=== PATIENT | male | born 1955 | race Asian ===

== ENCOUNTER 2024-07-06 19:52 | Emergency (ER) | payer OTHER, SELFPAY ==
[2024-07-06 19:55] VITALS: BP 132/70
[2024-07-06 20:18] VITALS: BMI 28.1
[2024-07-06 20:23] VITALS: BP 115/66
[2024-07-06 20:48] LABS: % Basophils 0.9 % (0-2); % Eosinophils 1.2 % (0-6); % Immature Granulocytes 0.2 % (0-0.5); % Lymphocytes 39.4 % (20.5-51.1); % Monocytes 11.5 % (1.7-9.3); % Neutrophils 46.8 % (42.2-75.2); Absolute Basophils 0.1 10^3/uL (0-0.2); Absolute Eosinophils 0.1 10^3/uL (0-0.7); Absolute Lymphocytes 2.6 10^3/uL (1.2-3.4); Absolute Monocytes 0.8 10^3/uL (0.1-0.6); Absolute Neutrophils 3.1 10^3/uL (1.4-6.5); Hematocrit 36.7 % (39.0-52.0); Mean Corp Hgb Conc. 32.7 g/dL (33.0-37.0); Mean Corpuscular Hgb 29.1 pg (27.0-31.0); Mean Corpuscular Volume 89.1 fL (80.0-94.0); Mean Platelet Volume 9.6 fL (7.4-10.4); Nucleated Red Blood Cells % 0 % (-); Platelet Count 204 10^3/uL (130-400); Red Blood Cell Count 4.12 10^6/uL (4.70-6.10); Red Cell Dist. Width 13.3 % (11.5-14.5); White Blood Cell Count 6.5 10^3/uL (4.8-10.8)
[2024-07-06 21:00] VITALS: BP 108/61
[2024-07-06 21:06] LABS: ALT (SGPT) 17 U/L (0-50); AST (SGOT) 28 U/L (17-59); Albumin 4.2 g/dl (3.5-5.0); Alkaline Phosphatase 86 U/L (38-126); Blood Urea Nitrogen 26 mg/dl (9-20); Calcium 9.6 mg/dl (8.4-10.2); Carbon Dioxide 29 mmol/L (22-30); Chloride 104 mmol/L (98-107); Estimated Creatinine Clearance 89 ml/min; Glucose 100 mg/dl (70-99); Potassium 4.1 mmol/L (3.5-5.1); Sodium 142 mmol/L (135-145); Total Bilirubin 0.6 mg/dl (0.2-1.3); Total Protein 7.5 g/dl (6.3-8.2); eGFR > 60.00
[2024-07-06 21:11] LABS: Troponin I 0.019 ng/ml
[2024-07-06 22:00] VITALS: BP 111/65
[2024-07-06 23:00] VITALS: BP 116/70
[2024-07-06 23:51] LABS: Troponin I < 0.012 ng/ml
--- NOTE | 2024-07-07 00:05 | ED.GENMED ---
History of Present Illness
General
Chief Complaint: Heart Rate Problem
Source: patient and family (Son who is at bedside)
Exam Limitations: other (Patient speaks Persian, son is interpreting)
Time Seen by Provider: 07/06/24 22:17
Nursing documentation reviewed up to this point in time: agreed with
History of Present Illness
History of Present Illness:
This is a 69-year-old Persian speaking gentleman who presents to the ED with his son. Son is interpreting for his father. Patient resides at home with his . He has history of aortic valvular disease, status post tissue aortic valve replacement
2013 and then again December 2020. History of hypertension, CHF with brief episode of atrial flutter 2022. During routine air brush decorator office visit June 23 patient was noted to have significant increase in ND interval thus recommended Holter
monitor which he wore for 3 days last week. He received a phone call from air brush decorator office today stating monitor was abnormal and to present to the ED immediately.
Patient remains asymptomatic, he admits to 1 brief episode of dizziness over 1 month ago without return. He had 1 brief episode of chest discomfort 1 week ago without associated symptoms, resolved within a few seconds and has not returned. Chest
discomfort did not occur while he was wearing Holter monitor.
Other than this he has been feeling well, he has had no lightheadedness, no syncopal events, no chest pain or palpitations nor dizziness. Appetite has been good. He has had no leg pain or swelling. Weight has been stable/unchanged.
No recent change in his medications.
He follows with a air brush decorator at [facility] cardiology at [place].
Upon my limited access to records. Patient underwent echocardiogram May 26, 2024, showing well-seated prosthetic in the aortic position with mild aortic regurgitation, normal LV function. Mild aortic regurgitation is new compared to previous
study 2022 otherwise unchanged.
I have no access to Holter monitor results.
Past History
Past History
ED Past Medical History: Arrthythmia (Episode of atrial flutter 2022), CHF (In setting of singular episode of atrial flutter), Hypercholesterolemia, NIDDM and Valvular disease
ED Past Surgical History: Cardiac (Aortic valve replacement 2013 and again 2020-tissue valve)
Social History
Tobacco: Non-smoker
Alcohol: None
Personal:
Living: with family
Employment: Retired
Family History
Family History: Other (Noncontributory)
Phy Exam
Physical Exam
Physical Exam:
GENERAL: Alert , in no apparent distress. 69-year-old gentleman appears his stated age, bright and alert, pleasant, appears in no acute distress. Son is accompanying and is interpreting for his father.
EYE: pupils equal and reactive. anicteric
NECK: Supple, nontender, no meningismus, no significant adenopathy. No JVD.
ENT: posterior pharynx is clear, oral mucosa is moist. No rhinorrhea.
CARDIAC: Regular rate and rhythm. 3/6 holosystolic murmur left sternal border
LUNGS: Clear breath sounds bilaterally, no acute respiratory distress, no wheezes/rales/rhonchi
ABDOMEN: Soft, nondistended, without focal tenderness, no r/g, no cvat. normoactive BS.
NEUROLOGICAL: Alert and oriented x3, no focal neuro deficits. Gait is todd and steady.
SKIN: Warm and dry, normal color, skin intact. No rash.
MUSCULOSKELETAL: No C/C/E. peripheral pulses are full and equal b/l. No palpable tenderness.
PSYCH: Normal and appropriate interaction.
Course
Orders/Labs/Results
Orders:
Orders
07/06/24 19:56
Electrocardiogram (*1) Urgent
Reason for Study: Bradycardia / Tachycardia
EKG- Treatment ONCE
07/06/24 20:40
CMP [Comprehensive Metabolic Panel] Urgent
Complete Blood Count/With Diff Urgent
Magnesium Urgent
Comment: ADD ON
Troponin I Urgent
07/06/24 23:15
Add On- LAB Urgent
Tests Added?: Mg
07/06/24 23:20
Troponin I Urgent
Abnormal Lab Results
07/06/24
20:40
RBC 4.12 L 10^6/uL
(4.70-6.10)
Hgb 12.0 L g/dL
(13.0-18.0)
Hct 36.7 L %
(39.0-52.0)
MCHC 32.7 L g/dL
(33.0-37.0)
Absolute Monos (auto) 0.8 H 10^3/uL
(0.1-0.6)
Monocytes % 11.5 H %
(1.7-9.3)
BUN 26 H mg/dl
(9-20)
Glucose 100 H mg/dl
(70-99)
07/06/24 20:40
07/06/24 20:40
Vital Signs
Initial and Last Documented VS:
Initial Vital Signs
Temp Pulse Resp BP Pulse Ox
98.4 F 72 20 132/70 99
07/06/24 19:55 07/06/24 19:55 07/06/24 19:55 07/06/24 19:55 07/06/24 19:55
Last Documented Vital Signs
Temp Pulse Resp BP Pulse Ox
98.3 F 67 17 116/70 98
07/06/24 20:18 07/07/24 00:00 07/07/24 00:00 07/06/24 23:00 07/07/24 00:00
MDM/Problems Addressed
Differential Diagnosis Includes:
Concern for asymptomatic bradycardia arrhythmia versus tacky arrhythmia noted on outpatient Holter monitor from last week.
Patient remains asymptomatic, hemodynamically stable, normal vital signs.
Monitor shows normal sinus rhythm with first-degree AV block. No arrhythmia nor heart block.
EKG shows similar. No old EKG to compare.
Labs thus far reveal very mild anemia. Unremarkable chemistries. Troponin 0.019.
Will repeat troponin and will add magnesium.
Will continue cardiac cath technologist and will reach out to air brush decorator on-call for [facility] cardiology.
Chronic conditions affecting care: Arrhythmia and Other (Valvular disease)
*Pulse Oximetry
Patient hypoxic: no
*EKG
Interpreted by ED Provider?: Yes
Interpretation: abnormal
Comparison EKG: no comparison EKG present
Rate: normal
Rhythm: sinus
[place]: normal axis
Interval: first degree heart block
QRS Pattern: normal QRS
Ischemia: T-wave inversion (Flipped T waves laterally, no old EKGs to compare)
*Environmental Health Officer Interpretation
Rate: normal
Interpretation: normal
Rhythm: sinus
*Critical Care Note
Total Time (30-74mins, 75-104mins- exclusive of procedures): Not Applicable
Update Note
Update Note:
07/06/2024 11:46AM
I have reached out to [facility] air brush decorator on-call for our ER, Dr. Delacruz. Case discussed. She unfortunately does not have access to patient's outpatient records, does not have access to his Holter monitor. It is however reassuring
that patient has been asymptomatic.
During 4-hour ER observation cardiac cath technologist continues to show normal sinus rhythm, first-degree AV block but no other arrhythmia, no other heart block.
He remains hemodynamically stable.
She recommends patient be discharged to home with recommendations today to touch base with his air brush decorator tomorrow morning.
Repeat troponin is pending as is magnesium level.
07/07/2024 0011 AM
Patient remains asymptomatic.
Monitor continues to show normal sinus rhythm with first-degree AV block. No arrhythmia.
Repeat troponin is negative. Magnesium is normal.
Plan as above. Will discharge to home with recommendations for prompt call to air brush decorator in the a.m.
Return precautions discussed.
ED Attending Note
-
Portions of this chart may have been created with voice recognition software.� Occasional wrong word or��sound alike� substitutions may have occurred due to the inherent limitations of voice recognition software.
Discharge Plan
Departure
Patient Disposition: Home (Routine Discharge)
Date of Disposition: 07/07/24
Time of Disposition: 00:06
Patient with high blood pressure during this ER visit?: No
Condition: Good
Discharge Problem:
History of cardiac arrhythmia, First degree atrioventricular block by electrocardiogram
Referrals:
Jeffrey Doshi DO [Family Provider] -
Activity Restrictions/Additional Instructions:
Call your air brush decorator's office in the am for prompt follow up--further evaluation.
Interventions
Interventions:
*Risk Screen - Suicide Last Done: 07/06/24 20:18
*General Assessment Last Done: 07/06/24 20:18
*Neglect/Abuse Screening Last Done: 07/06/24 20:18
*ED COVID-19 Vaccine History Last Done: 07/06/24 20:18
ED- Cardiac Assessment Last Done: 07/06/24 20:22
ED- Pulmonary Assessment Last Done: 07/06/24 20:22
Discharge Date and Time
Print Language: Persian
== END 2024-07-07 00:45 | disposition home or self-care (01) ==
LOC: EMR 19:52
PROVIDERS: Emergency Medicine; EMERGENCY PHYSICIAN Emergency Medicine; FAMILY PHYSICIAN Family Medicine; OTHER PHYSICIAN Internal Medicine Cardiovascular Disease
DX: I49.9 Cardiac arrhythmia, unspecified (principal); R42 Dizziness and giddiness; R07.89 Other chest pain; I44.0 Atrioventricular block, first degree; I35.1 Nonrheumatic aortic (valve) insufficiency; I11.0 Hypertensive heart disease with heart failure; I50.9 Heart failure, unspecified; E78.00 Pure hypercholesterolemia, unspecified; E11.9 Type 2 diabetes mellitus without complications; I48.92 Unspecified atrial flutter; D64.9 Anemia, unspecified; Z95.3 Presence of xenogenic heart valve
CPT/HCPCS: 99283; 80053; 83735; 84484; 85025; 93005

== ENCOUNTER 2024-07-14 11:28 | Day surgery (SDC) | payer OTHER, SELFPAY ==
[2024-07-14] VITALS (7 sets, daily range): BP systolic 101–136; BP diastolic 62–79; BMI 29.0
--- NOTE | 2024-07-14 13:40 | PTCARENOTE ---
Medication list, assessment, and nursing questions completed using [employer] services, employee operations examiner Maggi, # [id number].
--- NOTE | 2024-07-14 17:42 | ITS.CL.PACE ---
Crtt - Pacemaker Implant
Pacemaker Implant
Procedure Report:
PACEMAKER IMPLANT REPORT
Primary pbx repairer: Dr Karlos Webb
Date of Procedure: July 14, 2024
Procedure:
Implantation of dual-chamber permanent pacemaker utilizing the left bundle branch for conduction system pacing
Indication/Diagnosis:
Non-reversible symptomatic bradycardia due to third degree atrioventricular block
HISTORY:
He has known AV conduction system disease which has progressed to the point of having periods of symptomatic complete heart block with no reversible cause.
He has been referred for implantation of dual-chamber permanent pacemaker
After informed consent was obtained, 'time out' was called and confirmed, the patient was prepped and draped in a sterile fashion. Lidocaine with epi was used for local anesthesia. Central venous access was obtained via subclavian venipuncture. An
incision was made along the left chest and a pre-pectoral pocket was formed. Using a Seldinger technique and peel-away sheaths, the pacing leads were placed under fluoroscopic guidance.
Fluoroscopy was used to determine likely anatomic site for left bundle branch pacing. The Medtronic C315 sheath was used to deliver the Medtronic 3830 Selectsecure pacing lead with the helix exposed just exposed from the sheath tip during continuous
monitoring when pacemapping the septum during gentle clockwise rotation to obtain a paced QRS morphology of a W pattern in lead V1. Once the suspected optimal site was identified, lead deployment was performed with several rapid rotations as paced
QRS morphology was intermittently monitored until a paced QRS complex in lead V1 demonstrated development of an R wave (Qr).
Unipolar pacing impedance dropped by approximately 200 ohms suggesting it had reached the left ventricular subendocardial.
Stable VEgm injury current is present at final lead position suggesting there was no perforation through the septum into the LV cavity.
Final unipolar pacing impedance is 1000 Ohms
Unipolar pacing threshold is stable at 0.5 V @ 0.4 ms.
Final conduction system paced QRS complex duration is 117 ms
LVAT is 74 ms and peak V5 -> peak V1 timing is 50 ms
Right atrial lead was placed at the RAA.
Once testing (see below) showed adequate and stable function, the leads were secured using the suture sleeves. The pocket was liberally irrigated with antibiotic solution. The leads were connected to the generator header and the leads and
generator were placed within the pocket. Fluoroscopy confirmed stable lead position. The pocket was closed in the typical fashion.
Fluoroscopy was used to guide lead placement.
IMPLANTS:
Medtronic [id number], SN: [id number], Left Pectoral
RA: Medtronic 5076-45, SN: [id number], RAA
RV: Medtronic 3830 , SN:[id number], Interventricular septum at LBB
DEVICE TESTING:
Sensing: RA 1.2 mV, RV 7 mV
Capture: RA 1.5 V@0.4ms, RV 0.5 V@0.4ms
Ohms: RA 642, RV 1121 (bipolar)
FINAL PROGRAMMING
Jose Pacing: AAIR+ 60-130 ppm
While there is intermittent complete heart block, mostly he conducts. Therefore I have programmed the device to MVP to minimize the need for ventricular pacing but should there be increasing need for ventricular pacing, conduction system pacing
should reduce the likelihood of any pacing induced cardiomyopathy.
COMPLICATIONS:
None
CONCLUSIONS:
Successful implant of dual chamber permanent pacemaker utilizing Left Bundle Branch conduction system capture for pacing
RECOMMENDATIONS:
Post-op care (tele, CXR, IV abx)
Resume rivaroxaban tomorrow night
In-Office wound check in 5-7 days
Continue cardiovascular care with Dr. Webb
Copy to:
Dr Karlos Webb
--- NOTE | 2024-07-14 19:40 | PTCARENOTE ---
Received patient from EP lab after PPM inserted left upper chest. Dressing left upper chest is dry and intact with immobilizer in place. EKG done, oriented to room and plan of care and reinforced post op restrictions. Call johnston in reach, patient
eating dinner now.
[2024-07-14] MEDS: LOPRESSOR 25 MG PO (19:58)
[2024-07-14] MEDS: COLACE 100 MG PO (19:59)
[2024-07-14] MEDS: ANCEF 5 IV (22:39)
--- NOTE | 2024-07-15 01:59 | PTCARENOTE ---
Rec'd pt at 1900. Pt on Tele monitor in NSR with 1st degree HB, occasional periods of Vpaced rhythm, and HR in the 60's. Pt with VSS and AAOx3. Pt with left chest dressing CDI post permanent pacemaker placement and left should immobilizer in
place. Pt denies any pain and verbalized understanding of LUE restriction due to pacer placement. Pt resting with call johnston in reach.
[2024-07-15 02:52] VITALS: BP 112/68
[2024-07-15 03:26] LABS: Hemoglobin 12.5 g/dL (13.0-18.0); Mean Corp Hgb Conc. 32.9 g/dL (33.0-37.0); Mean Corpuscular Hgb 29.1 pg (27.0-31.0); Mean Corpuscular Volume 88.6 fL (80.0-94.0); Mean Platelet Volume 9.7 fL (7.4-10.4); Platelet Count 187 10^3/uL (130-400); Red Blood Cell Count 4.29 10^6/uL (4.70-6.10); Red Cell Dist. Width 12.9 % (11.5-14.5); White Blood Cell Count 6.9 10^3/uL (4.8-10.8)
[2024-07-15 03:46] LABS: Blood Urea Nitrogen 23 mg/dl (9-20); Calcium 9.3 mg/dl (8.4-10.2); Carbon Dioxide 25 mmol/L (22-30); Chloride 103 mmol/L (98-107); Estimated Creatinine Clearance 94 ml/min; Glucose 164 mg/dl (70-99); Magnesium 2.2 mg/dl (1.6-2.3); Potassium 4.3 mmol/L (3.5-5.1); Sodium 141 mmol/L (135-145); eGFR > 60.00
[2024-07-15 04:35] LABS: Hepatitis C Antibody Negative (Negative)
[2024-07-15] MEDS: ANCEF 5 IV (06:10)
[2024-07-15 07:12] VITALS: BP 123/71
[2024-07-15] MEDS: LOPRESSOR 25 MG PO (07:58)
[2024-07-15] MEDS: ZESTRIL 20 MG PO (07:58)
[2024-07-15] MEDS: LIPITOR 80 MG PO (07:58)
[2024-07-15] MEDS: ALDACTONE 25 MG PO (07:58)
[2024-07-15] MEDS: LASIX 40 MG PO (07:58)
[2024-07-15] MEDS: COLACE 100 MG PO (07:58)
[2024-07-15] MEDS: FEOSOL 325 MG PO (07:58)
--- NOTE | 2024-07-15 10:36 | W.PN.CARDCBS ---
Addendum entered and electronically signed by Parag Carmona DO 07/15/24 13:56:
I saw and examined the patient.
The Telegraph Repeater Technician's note was reviewed and I agree with the note.
Comment:
AAOx3, MAEE 5/
RRR S1 S2 2/6 BETHANY at base
CTA bilat, non labored
left ACW w/aquacel dressing CDI, no ht/bleeding, non tender
bilat extremities w/palpable distal pulses, no edema
telemetry APVS/ASVP; no AF
CXR no PTX
A/P as below
OK to resume OAC tonight
Incision check in 1 week
Continue home medical therapy
Follow-up as scheduled
Stable for DC
A/P as below
Original Note:
Today's Communication / Plan
-
resume xarelto tonight
activity limitations reviewed
incision check 1 week
home today
Impression / Plan
-
PCP:
CDY: Karlos Webb MD
69 y/o, prior AVR in 2013 with redo in 2020, now with dizziness and non-reversible symptomatic bradycardia d/t CHB. Presented to EP lab, now s/p DC PPM implant.
Hx AFlutter with [id number]=4, maintained on xarelto.
IMPRESSION:
Non reversible symptomatic bradycardia
CHB
s/p DC PPM implant, 07/14/24
AVR (2013) w/redo AVR (2020)
Atrial Flutter
HTN
DM
PLAN:
Tele- V/AVpaced w/underlying sinus rhythm, 60s
post procedure CXR w/stable lead revision, no pneumothorax
device site stable
resume xarelto tonight
activity limitations reviewed w/pt
incision check next week at [facility]
home today
Progress Note - Manager Management
Subjective
Date of Service: July 15, 2024
Denies cp/palps/dyspnea
device site without pain
oob ambulating
Objective
Labs:
07/15/24 03:01
07/15/24 03:01
Labs
Hgb 12.5 g/dL (13.0-18.0) L 07/15/24 03:01
Hct 38.0 % (39.0-52.0) L 07/15/24 03:01
Plt Count 187 10^3/uL (130-400) 07/15/24 03:01
Sodium 141 mmol/L (135-145) 07/15/24 03:01
Potassium 4.3 mmol/L (3.5-5.1) 07/15/24 03:01
BUN 23 mg/dl (9-20) H 07/15/24 03:01
Creatinine 0.8 mg/dL (0.7-1.3) 07/15/24 03:01
Glucose 164 mg/dl (70-99) H 07/15/24 03:01
Vital Signs and I&O:
Vital Signs
Temp Pulse Resp BP Pulse Ox
97.9 F 77 20 123/71 98
07/15/24 07:09 07/15/24 07:58 07/15/24 07:09 07/15/24 07:58 07/15/24 07:09
Vital Signs
Temp Pulse Resp BP Pulse Ox
97.9 F 77 20 123/71 98
07/15/24 07:09 07/15/24 07:58 07/15/24 07:09 07/15/24 07:58 07/15/24 07:09
Intake & Output
07/13/24 07/14/24 07/15/24 07/16/24
06:59 06:59 06:59 06:59
Intake Total 480 / 480
Balance 480 / 480
Physical Exam
Physical Exam
AAOx3, MAEE 5/5
RRR S1 S2 no murmurs
CTA bilat, non labored
left ACW w/aquacel dressing CDI, no ht/bleeding, non tender
bilat extremities w/palpable distal pulses, no edema
--- NOTE | 2024-07-15 10:42 | W.DS.TRANS ---
DC Summary - Petrophysicist
-
Discharge Instructions:
Discharge Diagnosis/Procedures heart block, s/p pacemaker implant
Diet Low Cholesterol
Driving Restrictions No driving for 1 week
Bathing Restrictions OK to Shower
Instructions:
Stand-Alone Forms: DC Inst - Implanted Device
Changes to Home Medications: No
Discharge Medications:
DC Medications w/original date entered in [employer]
ascorbic acid (vitamin C) 1,000 mg tablet 1 g PO QPM Supplement 07/14/24
atorvastatin 80 mg tablet 80 mg PO DAILY High Cholesterol 07/14/24
cholecalciferol (vitamin D3) 50 mcg (2,000 unit) capsule (Vitamin D3) 50 mcg PO QPM Supplement 07/14/24
docusate sodium 100 mg capsule (Stool Softener) 100 mg PO BID Constipation 07/14/24
ferrous sulfate 325 mg (65 mg iron) tablet (Iron (ferrous sulfate)) 325 mg PO DAILY Supplement 07/14/24
furosemide 40 mg tablet 40 mg PO DAILY Fluid Retention/Swelling 07/14/24
lisinopril 20 mg tablet 20 mg PO DAILY Blood Pressure 07/14/24
metoprolol tartrate 25 mg tablet 25 mg PO BID Heart Disease/Condition 07/14/24
omega 7-dhg-zir-fish oil 1,000 mg (120 mg-180 mg) capsule (Fish Oil) 1 cap PO QPM 07/14/24
rivaroxaban 20 mg tablet (Xarelto) 20 mg PO QPM Blood Clot Prevention/Tx 07/14/24
spironolactone 25 mg tablet 25 mg PO DAILY Fluid Retention/Swelling 07/14/24
Home Medication Changes
Pending Results: No
[2024-07-15 11:15] VITALS: BP 130/77
[2024-07-15 11:17] VITALS: BP 130/77
--- NOTE | 2024-07-15 11:35 | CM ---
Reviewed chart. Met with Mr. Mcintosh to review discharge plans. He states he is feeling well and maybe able to go home soon. He states prior to admission he resides with his spouse in a two story home with one step toenter. He states his spouse works
outside the home. He states he has a full flight of steps to get to bedroom/full bathroom. He states he has a powder room on the first floor. He states he does not have any DME in the home. He states he has a prescription plan and uses [facility]. The discharge plan is to return home with his spouse when medically stable.
--- NOTE | 2024-07-15 12:09 | PTCARENOTE ---
d/c instructions read to pt and verbalized understanding. pt left with belongings from room,PPM box and info. pt left via wheelchair with staff member.
--- NOTE | 2024-07-15 12:19 | PTCARENOTE ---
iv and tele removed. ppm site is CDI. immobilizer in place.
== END 2024-07-15 12:20 | disposition home or self-care (01) ==
LOC: CATH 11:28
PROVIDERS: Nurse Practitioner Adult Health; ATTENDING PHYSICIAN Internal Medicine Cardiovascular Disease; FAMILY PHYSICIAN Family Medicine
DX: I44.2 Atrioventricular block, complete (principal); R00.1 Bradycardia, unspecified; Z95.2 Presence of prosthetic heart valve; Z79.01 Long term (current) use of anticoagulants; Z79.899 Other long term (current) drug therapy; I50.9 Heart failure, unspecified; E11.9 Type 2 diabetes mellitus without complications; I48.92 Unspecified atrial flutter
CPT/HCPCS: 33208; 71045; 80048; 83735; 85027; 86803; 93005; C1769; C1785; C1887; C1892; C1898; Q9967